=== PATIENT | male | born 2000 | race Caucasian/White ===

== ENCOUNTER 2023-10-05 17:34 | Emergency (ER) | payer MEDICAID ==
[~2023-10-05] VITALS: Ht 172.7 cm; Wt 91.0 kg
[2023-10-05 17:51] VITALS: O2SAT 98
[2023-10-05] MEDS: IBUPROFEN 600MG TABLET PO ONE (18:56)
[2023-10-05] MEDS ORDERED: IBUP-2030 MT (19:33)
[2023-10-05 19:50] VITALS: BP 121/74; PULSE 64; RESP 20; TEMP 98.1
[2023-10-05] MEDS: DEXAMETHASONE 10 MG/ML VIAL IM ONE (19:52)
[2023-10-05 20:34] LABS: MONOTEST NEGATIVE (NEGATIVE)
== END 2023-10-05 20:00 | disposition home or self-care (01) ==
LOC: ER 17:34
DX: J02.9 Acute pharyngitis, unspecified (principal)
CPT/HCPCS: 99283; 87430; 86308; 87070; 96372; J1100